=== PATIENT | female | born 1980 | race Caucasian/White ===

== ENCOUNTER → 2017-08-12 | Outpatient (CLI) | payer OTHER ==
[2017-08-12 12:38] LABS: Rheumatoid Factor, Qnt <9 IU/mL (<12)
[2017-08-12 12:39] LABS: C Reactive Protein 12.9 mg/L (<10.0)
[2017-08-12 13:49] LABS: Erythrocyte Sedimentation Rate 18 mm/hr (0-20)
[2017-08-12 16:24] LABS: CH 28.9; CHCM 32.5; HCT 36.6 % (34.0-46.0); HDW 2.74; HGB 12.1 gm/dL (11.4-16.0); MCH 29.7 pg (25.0-35.0); MCHC 33.2 g/dL (31.0-37.0); MCV 89.6 fL (80.0-100.0); Mean Platelet Volume 7.9; RBC 4.08 m/uL (3.80-5.40); WBC 8.8 k/uL (3.8-10.6)
[2017-08-13 12:24] LABS: HLA B27 NEGATIVE; HLA B27 Comment SEEBELOW
[2017-08-13 20:46] LABS: ANA w/Reflex to Titer NEGATIVE (NEGATIVE)
[2017-08-15 11:00] LABS: Lyme IgG/IgM Interp NEGATIVE (NEGATIVE)
== END | disposition home or self-care (01) ==
LOC: LABWHC1 11:27
PROVIDERS: ATTEND Orthopaedic Surgery
DX: M17.12 Unilateral primary osteoarthritis, left knee (principal); M17.11 Unilateral primary osteoarthritis, right knee; M25.462 Effusion, left knee; Z71.3 Dietary counseling and surveillance
CPT/HCPCS: 36415; 84443; 85027; 85652; 86038; 86060; 86140; 86431; 86618; 86812

== ENCOUNTER → 2018-02-11 | Outpatient (CLI) | payer OTHER ==
--- NOTE | 2018-02-11 10:21 | XR ---
EXAM TYPE: LUMBAR SPINE X RAY SERIES COMPARISON: NONE HISTORY: Pain TECHNIQUE: Three views are submitted. FINDINGS: Alignment is anatomic. The pedicles are intact. The transverse processes are intact. There is no s pondylolisthesis. Hypertrophic spurring at T12 and L1 and L3. IMPRESSION: 1. No acute process. If there is concern for a disc herniation correlate with MRI.
--- NOTE | 2018-02-11 10:22 | XR ---
EXAMINATION TYPE: XR pelvis AP view DATE OF EXAM: 02/11/2018 COMPARISON: NONE HISTORY: Pain The osseous structures are intact and the joint spaces are preserved. No acute fracture is seen. Vi sualized bowel gas pattern is nonspecific. IMPRESSION: 1. No acute fracture.
== END | disposition home or self-care (01) ==
LOC: RADXRMAIN 09:56
PROVIDERS: ATTEND Emergency Medicine
DX: S30.0XXA Contusion of lower back and pelvis, initial encounter (principal)
CPT/HCPCS: 72100; 72170

== ENCOUNTER 2018-08-05 07:35 | Emergency (ER) | payer OTHER ==
[2018-08-05] MEDS ORDERED: SODIUM CHLORIDE 0.9% 1,000 ML IV STA (08:17)
[2018-08-05] MEDS ORDERED: ONDANSETRON 4 MG/2 ML VIAL IVP STA (08:17)
[2018-08-05] MEDS ORDERED: FAMOTIDINE 20 MG/2 ML VIAL IV STA (08:17)
--- NOTE | 2018-08-05 08:26 | ED ---
General Adult HPI - General Chief complaint: Abdominal Pain Stated complaint: Abdominal pain Time Seen by Provider: 08/05/18 08:17 Source: patient, RN notes reviewed Mode of arrival: ambulatory Limitations: no limitations - History of Present Illness Initial comments: 37-year-old female presented to the emergency room today with a chief complaint of upper abdominal pain times one month. She states for the past week she's had a constant pain. States at times and sharp. Does admit that it's worse after eating. States located in the epigastric area. Does admit to some nausea. Denies any other complaints or symptoms. Patient denies any recent fever, chills, shortness of breath, chest pain, back pain, numbness or tingling , dysuria or hematuria, constipation or diarrhea, headaches or visual changes, or any other complaints. - Related Data Previous Rx's Medication Instructions Recorded Omeprazole 20 mg PO DAILY #20 capsule. 08/05/18 Ondansetron Odt [Zofran ODT] 4 mg PO Q8HR PRN #20 tab 08/05/18 Allergies Allergy/AdvReac Type Severity Reaction Status Date / Time No Known Allergies Allergy Verified 08/05/18 08:03 Review of Systems ROS Statement: Those systems with pertinent positive or pertinent negative responses have been documented in the HPI. ROS Other: All systems not noted in ROS Statement are negative. Past Medical History Past Medical History: No Reported History History of Any Multi-Drug Resistant Organisms: None Reported Past Surgical History: Tubal Ligation Additional Past Surgical History / Comment(s): left ankle Past Psychological History: No Psychological Hx Reported Smoking Status: Never smoker Past Alcohol Use History: Rare Past Drug Use History: None Reported General Exam - General Exam Comments Initial Comments: General: The patient is awake and alert, in no distress, and does not appear acutely ill. Eye: Pupils are equal, round and reactive to light. Extra-ocular movements are intact. No nystagmus. There is normal conjunctiva bilaterally. No signs of icterus. Ears, nose, mouth and throat: There are moist mucous membranes and no oral lesions. Neck: The neck is supple, there is no tenderness or JVD. Cardiovascular: There is a regular rate and rhythm. No murmur, rub or gallop is appreciated. Respiratory: Lungs are clear to auscultation, respirations are non-labored, breath sounds are equal. No wheezes, stridor, rales, or rhonchi. Gastrointestinal: Abdomen soft on palpation. Patient does have tenderness epigastric and upper quadrants. No rebound, guarding or CVA tenderness. Musculoskeletal: Normal ROM, no tenderness. Sensation intact. Strength 5/5. Pulses equal bilaterally 2+. Neurological: A&O x 3. CN II-XII intact, There are no obvious motor or sensory deficits. Coordination appears grossly intact. Speech is normal. Skin: Skin is warm and dry and no rashes or lesions are noted. Psychiatric: Cooperative, appropriate mood & affect, normal judgment. Limitations: no limitations Course Vital Signs 08/05/18 08/05/18 07:44 10:09 Temperature 98.2 F 97.8 F Pulse Rate 90 72 Respiratory 18 18 Rate Blood Pressure 160/111 134/71 O2 Sat by Pulse 99 99 Oximetry Medical Decision Making - Medical Decision Making Patient reexamined at this time shows no signs of distress. She does admit to improvement after GI cocktail. Her ultrasound reviewed does show a most likely renal cyst which was seen on a previous CT. There is no evidence of any gallstones. No dilation of common bile duct. Patient's labs been reviewed unremarkable. Patient will be continued on omeprazole and Zofran and advised follow-up with GI specialist. Advised to return if symptoms increase or worsen or for any other concerns. Patient advised to stay away from fatty greasy foods. - Lab Data Result diagrams: 08/05/18 09:04 08/05/18 09:09 Lab Results 08/05/18 08/05/18 08/05/18 Range/Units 09:04 09:04 09:04 WBC 6.6 (3.8-10.6) k/uL RBC 4.46 (3.80-5.40) m/uL Hgb 12.6 (11.4-16.0) gm/dL Hct 39.0 (34.0-46.0) % MCV 87.4 (80.0-100.0) fL MCH 28.3 (25.0-35.0) pg MCHC 32.3 (31.0-37.0) g/dL RDW 14.2 (11.5-15.5) % Plt Count 304 (150-450) k/uL Neutrophils % 64 % Lymphocytes % 26 % Monocytes % 5 % Eosinophils % 3 % Basophils % 0 % Neutrophils # 4.2 (1.3-7.7) k/uL Lymphocytes # 1.7 (1.0-4.8) k/uL Monocytes # 0.3 (0-1.0) k/uL Eosinophils # 0.2 (0-0.7) k/uL Basophils # 0.0 (0-0.2) k/uL Sodium (137-145) mmol/L Potassium (3.5-5.1) mmol/L Chloride (98-107) mmol/L Carbon Dioxide (22-30) mmol/L Anion Gap mmol/L BUN (7-17) mg/dL Creatinine (0.52-1.04) mg/dL Est GFR (CKD-EPI)AfAm (>60 ml/min/1.73 sqM) Est GFR (CKD-EPI)NonAf (>60 ml/min/1.73 sqM) Glucose (74-99) mg/dL Calcium (8.4-10.2) mg/dL Total Bilirubin (0.2-1.3) mg/dL AST (14-36) U/L ALT (9-52) U/L Alkaline Phosphatase (38-126) U/L Total Protein (6.3-8.2) g/dL Albumin (3.5-5.0) g/dL Amylase (30-110) U/L Lipase (23-300) U/L Urine Color Yellow Urine Appearance Cloudy H (Clear) Urine pH 6.0 (5.0-8.0) Ur Specific [place] 1.020 (1.001-1.035) Urine Protein Negative (Negative) Urine Glucose (UA) Negative (Negative) Urine Ketones Negative (Negative) Urine Blood Negative (Negative) Urine Nitrite Negative (Negative) Urine Bilirubin Negative (Negative) Urine Urobilinogen <2.0 (<2.0) mg/dL Ur Leukocyte Esterase Negative (Negative) Urine WBC 1 (0-5) /hpf Ur Squamous Epith Cells 8 H (0-4) /hpf Urine Bacteria Few H (None) /hpf Urine Mucus Rare H (None) /hpf Urine HCG, Qual Not Detected (Not Detectd) 08/05/18 Range/Units 09:09 WBC (3.8-10.6) k/uL RBC (3.80-5.40) m/uL Hgb (11.4-16.0) gm/dL Hct (34.0-46.0) % MCV (80.0-100.0) fL MCH (25.0-35.0) pg MCHC (31.0-37.0) g/dL RDW (11.5-15.5) % Plt Count (150-450) k/uL Neutrophils % % Lymphocytes % % Monocytes % % Eosinophils % % Basophils % % Neutrophils # (1.3-7.7) k/uL Lymphocytes # (1.0-4.8) k/uL Monocytes # (0-1.0) k/uL Eosinophils # (0-0.7) k/uL Basophils # (0-0.2) k/uL Sodium 139 (137-145) mmol/L Potassium 4.6 (3.5-5.1) mmol/L Chloride 106 (98-107) mmol/L Carbon Dioxide 23 (22-30) mmol/L Anion Gap 10 mmol/L BUN 12 (7-17) mg/dL Creatinine 0.61 (0.52-1.04) mg/dL Est GFR (CKD-EPI)AfAm >90 (>60 ml/min/1.73 sqM) Est GFR (CKD-EPI)NonAf >90 (>60 ml/min/1.73 sqM) Glucose 106 H (74-99) mg/dL Calcium 9.1 (8.4-10.2) mg/dL Total Bilirubin 0.3 (0.2-1.3) mg/dL AST 39 H (14-36) U/L ALT 44 (9-52) U/L Alkaline Phosphatase 78 (38-126) U/L Total Protein 6.7 (6.3-8.2) g/dL Albumin 3.8 (3.5-5.0) g/dL Amylase 46 (30-110) U/L Lipase 57 (23-300) U/L Urine Color Urine Appearance (Clear) Urine pH (5.0-8.0) Ur Specific [place] (1.001-1.035) Urine Protein (Negative) Urine Glucose (UA) (Negative) Urine Ketones (Negative) Urine Blood (Negative) Urine Nitrite (Negative) Urine Bilirubin (Negative) Urine Urobilinogen (<2.0) mg/dL Ur Leukocyte Esterase (Negative) Urine WBC (0-5) /hpf Ur Squamous Epith Cells (0-4) /hpf Urine Bacteria (None) /hpf Urine Mucus (None) /hpf Urine HCG, Qual (Not Detectd) Disposition Clinical Impression: Abdominal pain Disposition: HOME SELF-CARE Condition: Good Instructions: Abdominal Pain (ED) Additional Instructions: Please use medication as discussed. Please follow-up with GI/family doctor in the next 2 days of symptoms have not improved. Please return to emergency room if the symptoms increase or worsen or for any other concerns. Prescriptions: Omeprazole 20 mg PO DAILY #20 capsule. Ondansetron Odt [Zofran ODT] 4 mg PO Q8HR PRN #20 tab PRN Reason: Nausea Is patient prescribed a controlled substance at d/c from ED?: No Referrals: None,Stated [Primary Care Provider] - 1-2 days Reyna Machado MD [STAFF PHYSICIAN] - 1-2 days Time of Disposition: 13:07
[2018-08-05 09:39] LABS: Appearance,Urine Cloudy (Clear); Bacteria,Urine Few /hpf; Bilirubin,Urine Negative (Negative); Blood,Urine Negative (Negative); Color,Urine Yellow; Glucose,Urine (UA) Negative (Negative); Ketones,Urine Negative (Negative); Leukocyte Esterase,Urine Negative (Negative); Mucus,Urine Rare /hpf; Nitrite,Urine Negative (Negative); Protein,Urine Negative (Negative); Squamous Epithelial Cell,Urine 8 /hpf (0-4); Urobilinogen,Urine <2.0 mg/dL (<2.0); WBC,Urine 1 /hpf (0-5)
[2018-08-05 09:40] LABS: ALT 44 U/L (9-52); AST 39 U/L (14-36); Albumin 3.8 g/dL (3.5-5.0); Alkaline Phosphatase 78 U/L (38-126); Amylase 46 U/L (30-110); Anion Gap 10 mmol/L; Blood Urea Nitrogen 12 mg/dL (7-17); Calcium 9.1 mg/dL (8.4-10.2); Carbon Dioxide 23 mmol/L (22-30); Chloride 106 mmol/L (98-107); Glucose 106 mg/dL (74-99); Lipase 57 U/L (23-300); Potassium 4.6 mmol/L (3.5-5.1); Sodium 139 mmol/L (137-145); Total Bilirubin 0.3 mg/dL (0.2-1.3); Total Protein 6.7 g/dL (6.3-8.2)
[2018-08-05 09:43] LABS: Basophils % (A) 0 %; Eosinophils # (A) 0.2 k/uL (0-0.7); Eosinophils % (A) 3 %; HGB 12.6 gm/dL (11.4-16.0); Lymphocytes # (A) 1.7 k/uL (1.0-4.8); Lymphocytes % (A) 26 %; MCH 28.3 pg (25.0-35.0); MCHC 32.3 g/dL (31.0-37.0); MCV 87.4 fL (80.0-100.0); Mean Platelet Volume 7.4; Monocytes # (A) 0.3 k/uL (0-1.0); Monocytes % (A) 5 %; Neutrophils # (A) 4.2 k/uL (1.3-7.7); Neutrophils % (A) 64 %; Platelet Count 304 k/uL (150-450); RBC 4.46 m/uL (3.80-5.40); RDW 14.2 % (11.5-15.5); WBC 6.6 k/uL (3.8-10.6)
--- NOTE | 2018-08-05 12:01 | US ---
EXAMINATION TYPE: US abdomen limited DATE OF EXAM: 08/05/2018 COMPARISON: 05/19/2013 CLINICAL HISTORY: 37-year-old female Pain x 1 week, Nausea x 1 month. TECHNIQUE: Multiple sonographic images of the right upper quadrant are obtained. FINDINGS: [employer] MACHINE NOTES: Suboptimal exam overall d/t patient size and large amounts of bowel gas. EXAM MEASUREMENTS: Liver Length: 19.9 cm Gallbladder Wall: 0.2 cm CBD: 0.4 cm Right Kidney: 10.6 x 5.8 x 4.8 cm Pancreas: Obscured by bowel gas Liver: enlarged, attenuating, fatty. The secondary limits assessment for focal lesion. Gallbladder: wnl Evidence for sonographic Westfall's sign: No CBD: wnl Right Kidney: No hydronephrosis. There is a 2.8 cm round hypoechoic lesion at the midpole. Review of the 2012 CT shows a 3.1 cm hypodense lesion here. Findings suggest a cyst with internal echoes either being artifactual or representing debris. IMPRESSION: Hepatomegaly (19.9 cm) with moderate to severe hepatic steatosis. Correlate with LFTs, lipid profile, and patient risk factors.
[2018-08-05] MEDS ORDERED: MAG HYDROX/AL HYDROX/SIMETH 30 ML, HYOSCYAMINE ELIXIR 10 ML, CIMETIDINE HCL 300 MG, LID... PO STA ×4 (12:08)
[2018-08-05 13:34] VITALS: BP 134/96; PULSE 78; RESP 16; TEMP 98.6
== END 2018-08-05 13:50 | disposition home or self-care (01) ==
LOC: EC 07:35
DX: R10.10 Upper abdominal pain, unspecified (principal); R11.0 Nausea; Z98.51 Tubal ligation status
CPT/HCPCS: 36415; 76705; 80053; 81001; 81025; 82150; 83690; 85025; 96361; 96374; 96375; 99284

== ENCOUNTER 2019-09-16 10:46 | Emergency (ER) | payer OTHER ==
[2019-09-16 10:57] VITALS: BP 130/85; PULSE 93; RESP 18; TEMP 98.3
[2019-09-16] MEDS ORDERED: KETOROLAC 60 MG/2 ML VIAL IM STA (11:20)
[2019-09-16] MEDS ORDERED: ACET/COD 300 MG/30 MG STARTER PACK 6 TAB BTL PO STA (11:20)
--- NOTE | 2019-09-16 11:38 | ED ---
Extremity Problem HPI - General Chief complaint: Extremity Problem,Nontraumatic Stated complaint: R Knee Swelling/Pain Time Seen by Provider: 09/16/19 11:03 Source: patient, RN notes reviewed, old records reviewed Mode of arrival: ambulatory Limitations: no limitations - History of Present Illness Initial comments: 39-year-old female presents emergency department today for evaluation for concerns for right knee pain and swelling. She reports worsening pain and swelling over the past 2 days. She reports she has a known history of osteoarthritis. She states she has not seen an orthopedic at this time. Denies any fall or trauma to relate her pain. 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 Patient states that she has never had the knee drained. - Related Data Previous Rx's Medication Instructions Recorded Omeprazole 20 mg PO DAILY #20 capsule. 08/05/18 Ondansetron Odt [Zofran ODT] 4 mg PO Q8HR PRN #20 tab 08/05/18 Ibuprofen [Motrin] 600 mg PO Q6HR PRN #20 tab 09/16/19 Allergies Allergy/AdvReac Type Severity Reaction Status Date / Time No Known Allergies Allergy Verified 08/05/18 08:03 Review of Systems ROS Statement: Those systems with pertinent positive or pertinent negative responses have been documented in the HPI. ROS Other: All systems not noted in ROS Statement are negative. Past Medical History Past Medical History: No Reported History, Osteoarthritis (OA) History of Any Multi-Drug Resistant Organisms: None Reported Past Surgical History: Orthopedic Surgery, Tubal Ligation Additional Past Surgical History / Comment(s): left ankle Past Psychological History: No Psychological Hx Reported Smoking Status: Never smoker Past Alcohol Use History: Rare Past Drug Use History: None Reported General Exam - General Exam Comments Initial Comments: 39-year-old female. Patient appears in no significant distress. Limitations: no limitations General appearance: alert, in no apparent distress Head exam: Present: atraumatic, normocephalic, normal inspection Eye exam: Present: normal appearance, PERRL. Absent: scleral icterus, conjunctival injection, periorbital swelling ENT exam: Present: normal exam Neck exam: Present: normal inspection. Absent: tenderness, meningismus, lymphadenopathy Respiratory exam: Present: normal lung sounds bilaterally. Absent: respiratory distress, wheezes, rales, rhonchi, stridor Cardiovascular Exam: Present: regular rate, normal rhythm, normal heart sounds. Absent: systolic murmur, diastolic murmur, rubs, gallop, clicks Extremities exam: Present: normal inspection, full ROM, normal capillary refill. Absent: tenderness, pedal edema, joint swelling, calf tenderness Right Upper Leg exam: Present: normal inspection, full ROM Knee exam: Present: tenderness, swelling (Patient signs and swelling over the medial aspect of the knee.), ecchymosis (over lateral knee. ). Absent: normal inspection Lower Leg exam: Present: normal inspection, full ROM Ankle exam: Present: normal inspection, full ROM Foot/Toe exam: Present: normal inspection, full ROM Neurovascular tendon exam: Present: no vascular compromise Gait: observed and normal Back exam: Present: normal inspection Neurological exam: Present: alert, oriented X3 Psychiatric exam: Present: normal affect, normal mood Skin exam: Present: warm, dry, intact, normal color. Absent: rash Course Vital Signs 09/16/19 09/16/19 10:54 11:45 Temperature 98.3 F 98.3 F Pulse Rate 93 93 Respiratory 18 18 Rate Blood Pressure 130/85 130/85 O2 Sat by Pulse 97 97 Oximetry Medical Decision Making - Medical Decision Making This is a 39-year-old female presents today with 2 days of worsening right knee pain and swelling. She has more pain over the lateral aspect of the knee, concern for some swelling over the patella bursa. Patient was informed that she likely to strain but best and by orthopedic. Discussed the importance of rest ice and elevate. Given instructions for knee immobilizers and advised to return for any worsening signs or symptoms. Patient understands treatment plan will comply. Return parameters were discussed. - Radiology Data Radiology results: report reviewed Review patient's report per[facility]al [facility] with her. This does show some tricompartmental swelling, and degenerative changes and osteophytes. No fracture was noted. Disposition Clinical Impression: Right knee pain, Knee effusion, right Disposition: HOME SELF-CARE Condition: Good Instructions (If sedation given, give patient instructions): Osteoarthritis (DC), Swollen Knee Joint (ED) Additional Instructions: Please use medication as discussed. Please follow up with family doctor if symptoms have not improved over the next two days. Please return to the emergency room if your symptoms increase or worsen or for any other concerns. Return to follow-up with orthopedic. Rest, ice, elevate the knee. Patient continues the knee immobilizer for ambulation. Prescriptions: Ibuprofen [Motrin] 600 mg PO Q6HR PRN #20 tab PRN Reason: Pain Is patient prescribed a controlled substance at d/c from ED?: No Referrals: None,Stated [Primary Care Provider] - 1-2 days Fabio Johns MD [STAFF PHYSICIAN] - 1-2 days Dontrell Guan DO [Doctor of Osteopathic Medicine] - 1-2 days Time of Disposition: 11:37
== END 2019-09-16 11:46 | disposition home or self-care (01) ==
LOC: EC 10:46
DX: M25.461 Effusion, right knee (principal); S80.11XA Contusion of right lower leg, initial encounter; M17.11 Unilateral primary osteoarthritis, right knee; Z98.51 Tubal ligation status; Z98.890 Other specified postprocedural states; X58.XXXA Exposure to other specified factors, initial encounter
CPT/HCPCS: 99284; 96372; J1885

== ENCOUNTER 2020-01-14 08:31 | Emergency (ER) | payer OTHER ==
[2020-01-14 08:39] VITALS: BP 127/84; PULSE 94; RESP 18; TEMP 97.9
--- NOTE | 2020-01-14 08:53 | ED ---
Eye Problem HPI - General Chief complaint: Eye Problems Stated complaint: left eye pain Time Seen by Provider: 01/14/20 08:41 Source: patient Mode of arrival: ambulatory Limitations: no limitations - History of Present Illness Initial comments: Patient is a 39-year-old female presenting to emergency Department with complaints of left eye irritation 1 day. Patient states she went to bed feeling fine and then woke up this morning with a red and irritated left eye. She states she had a yellow crusting holding her eye shut. She is a warm washcloth to remove the crusting. She denies having any other upper respiratory type symptoms j such as runny nose,cough, fever. She denies any nausea, vomiting. She denies any foreign bodies in the left eye. She denies wearing contacts. She has no other complaints at this time. Upon arrival to the ER vitals are stable. - Related Data Previous Rx's Medication Instructions Recorded Omeprazole 20 mg PO DAILY #20 capsule. 08/05/18 Ondansetron Odt [Zofran ODT] 4 mg PO Q8HR PRN #20 tab 08/05/18 Ibuprofen [Motrin] 600 mg PO Q6HR PRN #20 tab 09/16/19 Polymyxin B-Trimeth Sulf Ophth 1 drops LEFT EYE Q4H 5 Days #1 01/14/20 [Polytrim Opthalmic] bottle Allergies Allergy/AdvReac Type Severity Reaction Status Date / Time No Known Allergies Allergy Verified 01/14/20 08:40 Review of Systems ROS Statement: Those systems with pertinent positive or pertinent negative responses have been documented in the HPI. ROS Other: All systems not noted in ROS Statement are negative. Past Medical History Past Medical History: Osteoarthritis (OA) History of Any Multi-Drug Resistant Organisms: None Reported Past Surgical History: Orthopedic Surgery, Tubal Ligation Additional Past Surgical History / Comment(s): left ankle Past Psychological History: No Psychological Hx Reported Smoking Status: Never smoker Past Alcohol Use History: Rare Past Drug Use History: None Reported General Exam - General Exam Comments Initial Comments: GENERAL: Well-appearing, well-nourished and in no acute distress. HEAD: Atraumatic, normocephalic. EYES: Pupils equal round and reactive to light, extraocular movements intact, sclera anicteric, conjunctiva are normal. Left eye is mildly erythematous. No active discharge at this time. All foreign bodies seen bilaterally. ENT: TMs normal, nares patent, oropharynx clear without exudates. Moist mucous membranes. NECK: Normal range of motion, supple without lymphadenopathy or JVD. LUNGS: Breath sounds clear to auscultation bilaterally and equal. No wheezes rales or rhonchi. HEART: Regular rate and rhythm without murmurs, rubs or gallops. ABDOMEN: Soft, nontender, normoactive bowel sounds. No guarding, no rebound. No masses appreciated. : Deferred EXTREMITIES: Normal range of motion, no pitting or edema. No clubbing or cyanosis. NEUROLOGICAL: Normal speech, normal gait. PSYCH: Normal mood, normal affect. SKIN: Warm, Dry, normal turgor, no rashes or lesions noted. Limitations: no limitations Course Vital Signs 01/14/20 08:37 Temperature 97.9 F Pulse Rate 94 Respiratory 18 Rate Blood Pressure 127/84 O2 Sat by Pulse 98 Oximetry Medical Decision Making - Medical Decision Making Patient is a 39-year-old female presenting with left eye irritation 1 day. She has symptoms consistent with conjunctivitis. Patient will be started on Polytrim eyedrops. She is in agreement this plan and care. Patient will follow up with PCP if symptoms persist. Disposition Clinical Impression: Conjunctivitis, left eye Disposition: HOME SELF-CARE Condition: Stable Instructions (If sedation given, give patient instructions): Conjunctivitis (ED) Additional Instructions: Please return to the Emergency Department if symptoms worsen or any other concerns. Use eyedrops as prescribed. Follow-up with PCP as symptoms persist. Prescriptions: Polymyxin B-Trimeth Sulf Ophth [Polytrim Opthalmic] 1 drops LEFT EYE Q4H 5 Days #1 bottle Is patient prescribed a controlled substance at d/c from ED?: No Referrals: Alex Hannah DO [Primary Care Provider] - 1-2 days
== END 2020-01-14 08:58 | disposition home or self-care (01) ==
LOC: EC 08:31
DX: H10.9 Unspecified conjunctivitis (principal)
CPT/HCPCS: 99283

== ENCOUNTER → 2021-04-16 | Outpatient (CLI) | payer OTHER ==
--- NOTE | 2021-04-16 13:22 | US ---
EXAMINATION TYPE: US abdomen limited DATE OF EXAM: 04/16/2021 COMPARISON: 08/05/2018 CLINICAL HISTORY: R94.5 ELEVATED LIVER ENZYMES. Elevated liver enzymes EXAM MEASUREMENTS: Liver Length: 16.1 cm Gallbladder Wall: 0.3 cm CBD: 0.4 cm Right Kidney: 10.3 x 4.5 x 5.6 cm *Technical limitations due to patient's body habitus and large amount of overlying bowel content Pancreas: slightly heterogeneous. Head and tail of the pancreas are not well-visualized. Liver: Mild fatty infiltration of the liver. No discrete hepatic mass or intrahepatic biliary dilata tion. Gallbladder: The gallbladder wall measures 3 mm, which is at the upper limits of normal. No perichol ecystic fluid. No shadowing gallstones. There is a echogenic 7 mm structure adherent to the gallbladd er wall most suggestive of a polyp. Alternatively this may represent tumefactive sludge. A 6 month fo llow-up ultrasound is recommended. Evidence for sonographic Westfall's sign: no CBD: appears wnl Right Kidney: Anechoic cyst at the right interpolar region measuring 3.8 x 3.3 x 3.6cm IMPRESSION: 1. Mild diffuse fatty infiltration of the liver. 2. A 3.8 cm right interpolar cyst. 3. The head and tail of the pancreas are not well visualized. 4. 7 mm echogenic structure within the gallbladder wall suggestive of a polyp or less likely tumefact raulito sludge. A six-month follow-up ultrasound is recommended.
--- NOTE | 2021-04-16 16:42 | US ---
EXAMINATION TYPE: US mass soft tissue chest/back DATE OF EXAM: 04/16/2021 COMPARISON: NONE CLINICAL HISTORY: M79.9 Soft tissue disorder, unspecified. Lump mid lower back for years Findings: Sonographic study of the palpable lump at the, mid lower back, shows an well defined isoechoic lesion is = 3.1 x 1.6 x 4.0 cm. This is a probable lipoma. A low-grade liposarcoma cannot be excluded. Clin ical follow-up or surgical evaluation for possible excision is recommended. IMPRESSION: 1. At the site of palpable lump at the mid lower back there is an isoechoic well defined lesion is 3. 1 x 1.6 x 4.0 cm. This is most likely a lipoma but a low-grade liposarcoma cannot be excluded. Interv al Clinical follow-up or surgical evaluation for possible excision is recommended. Return to imaging as clinically indicated.
== END | disposition home or self-care (01) ==
LOC: RADUSWWP 12:15
PROVIDERS: ATTEND Family Medicine
DX: K76.0 Fatty (change of) liver, not elsewhere classified (principal); N28.1 Cyst of kidney, acquired; M79.9 Soft tissue disorder, unspecified
CPT/HCPCS: 76705

== ENCOUNTER → 2021-05-09 | Outpatient (CLI) | payer OTHER ==
[2021-05-09 16:20] VITALS: BP 132/89; PULSE 98; RESP 18; TEMP 98.6; BMI 44.3
--- NOTE | 2021-05-09 16:55 | P.HPBAR ---
Bariatric H&P - History & Physicial H&P Date: 05/09/21 History & Physicial: Visit/CC: initial visit Patient initial contact: Initial weight: Initial weight in pounds: Height: 5 ft 4 in Initial BMI: Last weight: Current weight: 117.118 kg Current weight in pounds: 258.20 Current BMI: 44.3 [place] body weight (based on NIH guidelines): 54.431 kg Excess body weight loss: The patient is a 40 year-old F who presents for Bariatric Assessment. DATE OF SERVICE: 05/09/2021 REASON FOR CONSULTATION: Initial bariatric evaluation. HISTORY OF PRESENT ILLNESS: Letha Rosales is a 40-year-old female who comes with lifelong morbid obesity. She comes in looking into the sleeve gastrectomy. She reports heartburn and takes Prilosec for almost 1 year. She still has her gallbladder. She had an ultrasound of her gallbladder for elevated liver enzymes and has gallbladder polyps. Her highest weight is 298 pounds. She has tried diets including exercising and keto diet. She reports she does not eat much. She has family history of obesity including her sister, grandmother and aunt. She cerda s arthritis of the knees and takes Mobic to control her symptoms. She has lower back pain, hip pain along the right. She has troubles with the left ankle from rolling. She takes blood pressure medications. She denies stomach or esophageal cancer. She is on medical supervised weight loss. She has exposure to tobacco use. She does not smoke. She has not been tested for sleep apnea. She presents the first time in consultation for weight loss. At height of 5 feet 4 inches, her ideal body weight is 144 pounds. Her highest weight is 298 pounds, body mass index 51.3. She comes in 258 pounds. Her body mass index is 44.3. She is 114 pounds overweight. PAST MEDICAL HISTORY: 1. Morbid obesity due to excess calories 2. Body mass index of 44.3, initial 3. Osteoarthritis of the knees. 4. Fatty liver disease 5. Hypertensive heart disease. 6. Gastroesophageal reflux disease 7. Osteoarthritis of the hips 8. Osteoarthritis of the back 9. Osteoarthritis of the left ankle PAST SURGICAL HISTORY: 1. Left ankle surgery 2. Tubal ligation HOME MEDICATIONS: Home Medications Medication Instructions Recorded Confirmed Atorvastatin [Lipitor] 20 mg PO HS 05/09/21 05/09/21 Cyclobenzaprine [Flexeril] 10 mg PO TID PRN 05/09/21 05/09/21 Ergocalciferol [Vitamin D2 (1250 1,250 mcg PO WEEKLY 05/09/21 05/09/21 Mcg = 82490 Iu)] HYDROcodone/APAP 5-325MG [[place] 1 tab PO TID PRN 05/09/21 05/09/21 5-325] Meloxicam [Mobic] 7.5 mg PO HS 05/09/21 05/09/21 Phentermine HCl [Adipex-P] 37.5 mg PO DAILY 05/09/21 05/09/21 Propranolol [Inderal] 40 mg PO BID 05/09/21 05/09/21 Previous Rx's Medication Instructions Recorded Omeprazole 20 mg PO DAILY #20 capsule. 08/05/18 ALLERGIES: Allergies Allergy/AdvReac Type Severity Reaction Status Date / Time No Known Allergies Allergy Verified 05/09/21 16:07 SOCIAL HISTORY: Past tobacco use. FAMILY HISTORY: No family history of ulcerative colitis disease or Crohn's disease. Family history of morbid obesity. No lupus in the family. No reports of stomach or esophageal cancer. She has family history of obesity including her sister, grandmother and aunt. REVIEW OF ORGAN SYSTEMS: CONSTITUTIONAL: At height of 5 feet 4 inches, her ideal body weight is 144 pounds. Her highest weight is 298 pounds, body mass index 51.3. She comes in 258 pounds. Her body mass index is 44.3. She is 114 pounds overweight. HEENT: Denies any active troubles with vision or hearing. ENDOCRINE: Denies diabetes. No hypothyroidism. CARDIOVASCULAR: Denies past reports of palpitations or heart attacks or chest pain. Has hypertensive heart disease. RESPIRATORY: Denies asthma. Denies chronic obstructive pulmonary disease. GASTROINTESTINAL: Denies any bright red blood per rectum. No diarrhea. No constipation. Has gastroesophageal reflux disease. GENITOURINARY: Denies bladder urgency. No recent blood in urine MUSCULOSKELETAL: Has lower back pain and joint pain. Has osteoarthritis of the knees. NEURO: No headaches. No seizure disorders. Has neuropathy. PSYCH: Has depression. No suicidal ideation. RHEUMATOLOGIC: No lupus. No rheumatoid arthritis. HEMATOLOGIC: Denies any abnormal bleeding or bruising. SKIN: No rash. No skin cancer. PHYSICAL EXAM: VITAL SIGNS: Height 5 foot 4 inches, weight 258 pounds. BMI 44.3 Vital Signs Temp 98.6 F 05/09/21 16:06 Pulse 98 05/09/21 16:06 Resp 18 05/09/21 16:06 BP 132/89 05/09/21 16:06 Pulse Ox GENERAL: Well-developed in no acute distress. HEENT: No scleral icterus. Extraocular movements grossly intact. Hears conversational speech. No nasal drainage. NECK: Supple without lymphadenopathy. CHEST: Nonlabored respirations with equal bilateral excursions. CARDIOVASCULAR: Regular rate and regular rhythm. Distal 2+ pulses. ABDOMEN: Obese, soft, nontender, nondistended. MUSCULOSKELETAL: No clubbing, cyanosis. NEURO: No focal or lateralizing signs. Cranial nerves 2 through 12 grossly within normal limits. PSYCH: Appropriate affect. Alert and oriented to person, place and time. SKIN: Good skin turgor. Well perfused. ASSESSMENT: 1. Morbid obesity due to excess calories 2. Body mass index of 44.3, initial 3. Osteoarthritis of the knees. 4. Fatty liver disease 5. Hypertensive heart disease. 6. Gastroesophageal reflux disease 7. Osteoarthritis of the hips 8. Osteoarthritis of the back 9. Osteoarthritis of the left ankle 10. Gallbladder polyps PLAN: 1. Surgical options including a band, gastric bypass, sleeve gastrectomy were described in detail. Alternatives such as gastric balloon including duodenal switch were described. She is looking into the sleeve gastrectomy. 2. The [place] bariatric surgical collaborative data and outcomes calculator were described with surgical options. 3. Recommend a bariatric metabolic panel to evaluate for micro- including macronutrient deficiencies. 4. For history of daytime somnolence, recommend evaluation and treatment for sleep apnea. 5. Dietary surveillance and counseling was reviewed. Increased protein intake over 65 grams daily advised. 6. Will need cardiac risk assessment. 7. Recommend medical risk assessment. 8. Psych assessment per insurance guidelines. 9. Recommend upper endoscopy. 10. Recommend 12-lead EKG. 11. Recommend esophagram 12. Recommend urine nicotine testing for history of tobacco abuse disorder 13. Recommend urine drug screen 14. [facility] advised. 15. Recommend possible cholecystectomy at the time of her bariatric procedure. Thank you for this consultation. Past Medical History Past Medical History: Hypertension, Liver Disease, Osteoarthritis (OA) Additional Past Medical History / Comment(s): fatty liver. lump removal planned for 05/17/21. History of Any Multi-Drug Resistant Organisms: None Reported Past Surgical History: Orthopedic Surgery, Tubal Ligation Additional Past Surgical History / Comment(s): left ankle Past Anesthesia/Blood Transfusion Reactions: No Reported Reaction Past Psychological History: No Psychological Hx Reported Smoking Status: Never smoker Past Alcohol Use History: Rare Past Drug Use History: None Reported Surgical - Exam Vital Signs Temp Pulse Resp BP 98.6 F 98 18 132/89 05/09/21 16:05/09/21 16:06 05/09/21 16:05/09/21 16:06 Bariatric Checklist Checklist: Plan: Checklist: EGD: 1. Hiatal hernia: 2. H. Pylori: HgbA1c: Vitamin D: Smoking: Never smoker Primary care physician referral: JACLYN Umanzor ([place]) Psychiatry clearance: Cardiology clearance: Sleep study: Diet journal: VTE risk score: VTE risk level: Rehab needs at discharge:
== END | disposition home or self-care (01) ==
LOC: BARWHC3 15:34
PROVIDERS: ATTEND Surgery Plastic and Reconstructive Surgery
DX: E66.01 Morbid (severe) obesity due to excess calories (principal); M17.0 Bilateral primary osteoarthritis of knee; M16.0 Bilateral primary osteoarthritis of hip; K76.0 Fatty (change of) liver, not elsewhere classified; I11.9 Hypertensive heart disease without heart failure; K21.9 Gastro-esophageal reflux disease without esophagitis; M19.072 Primary osteoarthritis, left ankle and foot; K82.4 Cholesterolosis of gallbladder; Z68.41 Body mass index [BMI] 40.0-44.9, adult
CPT/HCPCS: 99203